=== PATIENT | male | born 1990 | race African-American/Black ===

== ENCOUNTER 2017-09-10 17:12 | Inpatient (IN) | payer OTHER ==
[~2017-09-10] VITALS: Ht 175.3 cm; Wt 83.5 kg
[2017-09-10 17:30] VITALS: BP 134/82; TEMP 103.1
[2017-09-10 18:00] VITALS: BP 135/76; TEMP 103.2
[2017-09-10 18:01] LABS: PLATELET COUNT 198 K/uL (142-355)
[2017-09-10 18:13] LABS: POTASSIUM 3.7 mmol/L (3.6-5.2); SODIUM 134 mmol/L (136-145)
[2017-09-10 18:45] VITALS: BP 131/78; TEMP 101.2
[2017-09-10 20:36] VITALS: BP 118/75; TEMP 101.7; Ht 175.3 cm; Wt 83.5 kg
--- NOTE | 2017-09-10 23:01 | NUR ---
09/10/172014: RECEIVED PT FROM ER BY WHEELCHAIR TO ROOM 1107. PT ACCOMPANIED BY SIGNIFICANT OTHER AND HER SISTER WHO SPEAKS PRYDEINIG. PT SPEAKS NO PRYDEINIG. PT BEING ADMITTED FOR PNEUMONIA.
[2017-09-11] VITALS: BP 105/76; TEMP 99.1
[2017-09-11 04:00] VITALS: BP 109/72; TEMP 99
[2017-09-11 05:25] LABS: PLATELET COUNT 182 K/uL (142-355)
[2017-09-11 05:50] LABS: POTASSIUM 3.7 mmol/L (3.6-5.2); SODIUM 135 mmol/L (136-145)
[2017-09-11 08:00] VITALS: BP 108/73; TEMP 98.8
[2017-09-11 12:02] VITALS: BP 102/72; TEMP 98.6
[2017-09-11 16:00] VITALS: BP 106/71; TEMP 98.6
[2017-09-11 20:00] VITALS: BP 114/71; TEMP 98.5
[2017-09-12] VITALS: BP 103/58; TEMP 98.9
--- NOTE | 2017-09-12 00:37 | NUR ---
09/11/172039 PATIENT WAS EDUCATED ON USE OF INCENTIVE SPIROMOTER AND USED THE IS 10 TIMES. THE NUMBER HE COULD REACH WAS 1500.
[2017-09-12 04:00] VITALS: BP 104/72; TEMP 98
[2017-09-12 06:04] LABS: PLATELET COUNT 181 K/uL (142-355)
[2017-09-12 06:48] LABS: POTASSIUM 3.6 mmol/L (3.6-5.2); SODIUM 139 mmol/L (136-145)
[2017-09-12 08:00] VITALS: BP 108/73; TEMP 97.8
[2017-09-12 12:00] VITALS: BP 110/72; TEMP 98
[2017-09-12 16:00] VITALS: BP 106/71; TEMP 98.2
[2017-09-12 20:00] VITALS: BP 101/78; TEMP 97.8
[2017-09-13] VITALS: BP 104/66; TEMP 98.2
[2017-09-13 04:00] VITALS: BP 137/89; TEMP 98.1
[2017-09-13 05:20] LABS: PLATELET COUNT 165 K/uL (142-355)
[2017-09-13 05:44] LABS: POTASSIUM 3.6 mmol/L (3.6-5.2); SODIUM 137 mmol/L (136-145)
[2017-09-13 08:00] VITALS: BP 114/78; TEMP 98.3
[2017-09-13 12:00] VITALS: BP 114/80; TEMP 98.6
[2017-09-13 16:14] VITALS: BP 121/84; TEMP 98.2
[2017-09-13 20:00] VITALS: BP 119/70; TEMP 98.5
[2017-09-14] VITALS: BP 107/68; TEMP 97.6
[2017-09-14 04:00] VITALS: BP 110/83; TEMP 98.6
[2017-09-14 05:12] LABS: PLATELET COUNT 278 K/uL (142-355)
[2017-09-14 05:25] LABS: POTASSIUM 3.9 mmol/L (3.6-5.2); SODIUM 137 mmol/L (136-145)
[2017-09-14 08:00] VITALS: BP 115/78; TEMP 98.5
[2017-09-14 12:00] VITALS: BP 113/81; TEMP 97.8
[2017-09-14 16:00] VITALS: BP 109/74; TEMP 99.6
[2017-09-14 20:00] VITALS: BP 135/79; TEMP 98.7
[2017-09-15 01:02] VITALS: BP 129/70; TEMP 98.3
[2017-09-15 04:00] VITALS: BP 142/85; TEMP 98.3
[2017-09-15 05:39] LABS: POTASSIUM 3.8 mmol/L (3.6-5.2); SODIUM 135 mmol/L (136-145)
[2017-09-15 06:21] LABS: PLATELET COUNT 315 K/uL (142-355)
[2017-09-15 08:00] VITALS: BP 116/75; TEMP 97.5
--- NOTE | 2017-09-15 12:29 | NUR ---
1215 DISCHARGE INSTRUCTIONS GIVEN AND EXPLAINED TO PT VIA INTERPERTER. PT VOICED UNDERSTANDING. PT LEFT WITH NO ACUTE IDSTRESS NOTED
== END 2017-09-15 12:35 | disposition home or self-care (01) | DRG 195 ==
LOC: ED 17:12 → MED/SURG 19:00
PROVIDERS: Emergency Medicine
DX: J12.9 Viral pneumonia, unspecified (principal); R06.09 Other forms of dyspnea
CPT/HCPCS: 36415; 36600; 80053; 82805; 83735; 85027; 87040; 87070; 87077; 87081; 87185; 87205; 87804; 87880; 94640; 94664; 94760; 96365; 96366; 96367; 96372; 96374; 96375; 99284; J0456; J0696; J1650; J1885; J2930; Q9963